=== PATIENT | female | born 1990 | race American Indian/Alaskan Native ===

== ENCOUNTER 2021-02-17 12:36 | Emergency (ER) | payer OTHER ==
[2021-02-17] MEDS ORDERED: IBUPROFEN 800 MG TAB PO NR (12:51)
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
[2021-02-17 15:20] VITALS: BP 124/74
== END 2021-02-17 15:49 | disposition home or self-care (01) ==
LOC: ED 12:36
DX: S13.4XXA Sprain of ligaments of cervical spine, initial encounter (principal); S89.91XA Unspecified injury of right lower leg, initial encounter; V49.59XA Passenger injured in collision with other motor vehicles in traffic accident, initial encounter; Y93.89 Activity, other specified; Y92.89 Other specified places as the place of occurrence of the external cause; Y99.8 Other external cause status
CPT/HCPCS: 72040; 99283